=== PATIENT | male | born 2000 | race Two or more races ===

== ENCOUNTER 2023-08-03 21:07 | Emergency (ER) | payer SELFPAY ==
[~2023-08-03] VITALS: Ht 165.1 cm; Wt 93.0 kg
[2023-08-03 21:53] LABS: Urine Bacteria NONE SEEN /hpf (None Seen); Urine Blood Negative /uL (Negative); Urine Clarity Clear (Clear); Urine Color Colorless (Yellow); Urine Protein, UAD Negative (Negative); Urine Specific Gravity 1.023 (1.001-1.035); Urine Urobilinogen Normal (Negative); Urine WBC <1 /hpf (0 - 3); Urine pH 6.5 (5.0-8.0)
[2023-08-04] MEDS ORDERED: ACYC400T16 PO (00:18)
[2023-08-04 00:30] VITALS: BP 136/86; PULSE 80; RESP 18; TEMP 97.8; O2SAT 100
== END 2023-08-04 00:43 | disposition home or self-care (01) ==
LOC: ER 21:07
DX: B00.9 Herpesviral infection, unspecified (principal)
CPT/HCPCS: 81001